=== PATIENT | female | born 1930 | race Asian ===

== ENCOUNTER → 2016-12-06 | Outpatient (CLI) | payer MEDICARE, OTHER | LOC: FIMAGING 13:36 | PROVIDERS: ATTEND Internal Medicine Pulmonary Disease | DX: R05 Cough (principal) ==

== ENCOUNTER → 2016-12-27 | Outpatient (CLI) | payer OTHER ==
[~2016-12-27] MED LIST: IOPAMIDOL (ISOVUE-300) 100 ML BTL ONE
== END ==
LOC: FIMAGING 13:34
PROVIDERS: ATTEND Internal Medicine Pulmonary Disease
DX: R91.8 Other nonspecific abnormal finding of lung field (principal); K86.89 Other specified diseases of pancreas
CPT/HCPCS: 71260; Q9967

== ENCOUNTER → 2017-04-02 | Outpatient (CLI) | payer OTHER ==
[~2017-04-02] MED LIST changes: +GADOBUTROL 10 ML VIAL IVP ONE; -IOPAMIDOL (ISOVUE-300) 100 ML BTL ONE
== END ==
LOC: FIMAGING 12:52
PROVIDERS: ATTEND Internal Medicine Gastroenterology
DX: K86.2 Cyst of pancreas (principal); K76.89 Other specified diseases of liver; N28.1 Cyst of kidney, acquired; I77.89 Other specified disorders of arteries and arterioles
CPT/HCPCS: 74183; A9585